=== PATIENT | female | born 1980 | race Caucasian/White ===

== ENCOUNTER 2016-12-20 10:00 | Inpatient (IN) | payer OTHER ==
[~2016-12-20] VITALS: Ht 157.5 cm; Wt 59.9 kg
--- NOTE | ~2016-12-20 | PN ---
Unit #: [id number] #: [id number] Patient: OLIVER ADAMS [id number] [facility] [address] [place] [address] [id number] MR#: [id number] NAME: OLIVER ADAMS ROOM: P210 Age: 36 Sex: F Admission Date: 12/20/2016 : 1980 Attending Physician: Viraj Alcocer M.D. Admitting Physician: Viraj Alcocer M.D. Primary Care Physician: Sugar Doctor Not In System [facility] PROGRESS NOTES DATE 12/22/2016 DISCUSSION The patient has exhibited no further episodes of violence or acting out but does report that she is continuing to experience auditory hallucinations. I will therefore start her on Geodon 20 mg b.i.d. as she states that these symptoms predated her abuse of methamphetamine though I have some doubts related to the veracity of this story. Dictated by... Viraj Alcocer M.D. CB/mya TD: 12/22/2016 17:27 JOB #: [id number] [facility] PROGRESS NOTES Page 1 of 1 X Virja Alcocer MD X PROGRESS NOTE
--- NOTE | ~2016-12-20 | PN ---
Unit #: [id number] #: [id number] Patient: OLIVER ADAMS [id number] [facility] [address] [place] [address] [id number] MR#: [id number] NAME: OLIVER ADAMS ROOM: P210 Age: 36 Sex: F Admission Date: 12/20/2016 : 1980 Attending Physician: Viraj Alcocer M.D. Admitting Physician: Viraj Alcocer M.D. 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 However, she is now exhibiting significant symptoms of opioid withdrawal related to her abuse of Suboxone. We continue her current detoxification protocol. Dictated by... Viraj Alcocer M.D. CB/fabian TD: 12/23/2016 13:46 JOB #: [id number] [facility] PROGRESS NOTES Page 1 of 1 X Viraj Alcocer MD PROGRESS NOTE
--- NOTE | ~2016-12-20 | HP ---
Unit #: [id number] #: [id number] Patient: ISABELLA ADAMS [id number] [facility] [address] [place] [address] [id number] MR#: [id number] NAME: ISABELLA ADAMS ROOM: P210 Age: 36 Sex: F Admission Date: 12/20/2016 : 1980 Attending Physician: Viraj Alcocer M.D. Admitting Physician: Viraj Alcocer M.D. Primary Care Physician: Generic Doctor Not In System HISTORY AND PHYSICAL HISTORY OF PRESENT ILLNESS Isabella Ugarte is a 36 year old admitted to [address] [place] [address] because of her polysubstance abuse which includes heroin and methamphetamine. PAST MEDICAL HISTORY 1. Long history of illicit substance abuse. 2. History of hypothyroidism. a. Radiation ablation. PAST SURGICAL HISTORY Nothing reported. ALLERGIES No known drug allergies. SOCIAL HISTORY Smokes one pack per day. Drinks alcohol on occasion. Has a history of illicit substance abuse to include heroin and methamphetamine. FAMILY HISTORY Medically not known. REVIEW OF SYSTEMS She does not answer questions appropriately. There are no reports of nausea, vomiting or diarrhea. She has had no cough or increased temperature. CURRENT MEDICATIONS 1. Detox protocol 2. Synthroid 0.112 mg q.a.m. PHYSICAL EXAMINATION GENERAL: Alert, well-nourished, in no apparent distress. VITAL SIGNS: Blood pressure 104/72, heart rate 80, respirations 16, temperature 98.6. WEIGHT: 132. HEIGHT: 5 foot 2 inches. SKIN: Warm and dry without rash or lesion. HEENT: Normocephalic. TMs not viewed. Oral and nasal passages clear. Conjunctivae clear. Pupils equal, round and reactive to light and accommodation. Extraocular movements intact. NECK: Supple without lymphadenopathy or thyromegaly. Unit #: [id number] #: [id number] Patient: ISABELLA ADAMS HEART: Regular rate and rhythm without murmur. LUNGS: Clear. ABDOMEN: Soft, nontender. : Not done. EXTREMITIES: No evidence of cyanosis, clubbing or edema. Moves all extremities without focal deficit. NEUROLOGICAL: Unable to complete extended exam. She does move all extremities without focal deficit. Hand language translator is equal and gait is normal. IMPRESSION Psychiatric admission. RECOMMENDATIONS PSYCHIATRIC: Per psychiatrist. MEDICAL: I see no contraindications to participating in facility's activities. MEDICAL PROGNOSIS Good. MEDICAL CONDITION Stable. Dictated by... Veena Ernandez P.A.-C. for Luke Marie/jus TD: 12/21/2016 23:35 JOB #: [id number] HISTORY AND PHYSICAL Page 1 of 1 X Veena Ernandez X HISTORY AND PHYSICAL
--- NOTE | ~2016-12-20 | PA ---
Unit #: [id number] #: [id number] Patient: OLIVER ADAMS [id number] [place] [address] [id number] I MR#: [id number] NAME: OLIVER ADAMS ROOM: P210 Age: 36 Sex: F Admission Date: 12/20/2016 : 1980 Date of Assessment: 12/21/2016 Attending Physician: Viraj Alcocer M.D. Admitting Physician: Viraj Alcocer M.D. Primary Care Physician: Generic Doctor Not In System PSYCHIATRIC ASSESSMENT IDENTIFYING INFORMATION The patient is a 36-year-old white female admitted in what appears to be a methamphetamine induced psychosis. INFORMANT(S) The patient, reliability fair. CHIEF COMPLAINT None given. HISTORY OF PRESENT ILLNESS The patient is a 36-year-old white female with a history of polysubstance dependence including abuse of heroin, methamphetamine and . The patient was admitted yesterday in a state of florid psychosis claiming that her thyroid medication had been "microchipped" and also reporting that she has recently been subjected to radiation and observation. When seen today the patient has calmed down. She did require a p.r.n. dose of Geodon yesterday and is now on elopement precautions. During today's interview the patient reports that she occasionally "hears voices" but denies any other psychotic symptoms. She has been in chemical dependence treatment on one previous occasion per her report. She denies intravenous use of psychoactive substances. The patient does complain of depressed mood and reports a history of "one or two" suicide attempts both by means of "stabbing herself". The patient lives with her mother at this time. She has two children age 12 and 13 neither of whom are in her custody. She does not work outside the home. PAST PSYCHIATRIC HISTORY As above. PAST MEDICAL HISTORY Significant for a history of thyroidectomy related to thyroid cancer. MEDICATIONS Synthroid. ALLERGIES None reported. FAMILY HISTORY Noncontributory. SOCIAL HISTORY The patient lives with her mother and father. She does not work outside Unit #: [id number] #: [id number] Patient: OLIVER ADAMS the home. Her substance use history is described previously. MENTAL STATUS EXAMINATION At this time reveals the patient to be a well-developed, well-nourished white female, appearing her stated age. She is in no apparent physical distress at the time of examination. She is awake, alert, and oriented in all spheres. Her mood is mildly dysphoric. His affect constricted. Speech is generally relevant and coherent. There are no gross deficits in memory or cognition noted. Intelligence is judged to be in the average range based on fund of knowledge. The patient is cooperative throughout the interview. She is currently denying suicidal or homicidal ideation and denied any psychotic symptoms. Her judgement and insight appear to be reasonably intact. ASSETS AND LIABILITIES ASSETS: Supportive family. LIABILITIES: Ongoing substance use. DIAGNOSTIC IMPRESSION Methamphetamine use disorder, opioid use disorder, methamphetamine induced psychosis, history of thyroid cancer, status post thyroidectomy. TREATMENT PLAN The patient remains hospitalized for safety and stabilization. We will at this point hold on initiation of any antidepressant medication pending the clearing of the patient's methamphetamine induced psychosis. Once this has cleared we will consider initiation of antidepressant medication and I will ask the patient's renal social worker to see her regarding post discharge treatment options. ESTIMATED LENGTH OF STAY Three to five days. Dictated by... Viraj Alcocer M.D. TIERA/jus TD: 12/21/2016 21:15 JOB #: [id number] PSYCHIATRIC ASSESSMENT Page 1 of 1 X Viraj Alcocer MD X PSYCHIATRIC ASSESSMENT
--- NOTE | ~2016-12-20 | DS ---
Unit #: [id number] #: [id number] Patient: OLIVER ADAMS [id number] [facility] [address] [place] [address] [id number] MR#: [id number] NAME: OLIVER ADAMS ROOM: P210 Age: 36 Sex: F Admission Date: 12/20/2016 : 1980 Discharge Date: 12/24/2016 Attending Physician: Viraj Alcocer M.D. Primary Care Physician: Generic Doctor Not In System DISCHARGE SUMMARY REASON FOR ADMISSION The patient is a 36-year-old white female, admitted to the [address] [place] [address] unit with a history of methamphetamine-induced psychosis and opioid abuse. HOSPITAL COURSE The patient was admitted to the [address] [place] [address] unit and placed on suicide precautions. A routine detoxification protocol was initiated. The patient initially was noted to be quite psychotic and required several doses of IM Geodon. However, these symptoms seemed to subside rather quickly, though the patient did continue to exhibit some symptoms of opioid withdrawal. These had resolved by 12/24/2016 and the patient was at that point exhibiting no signs of psychosis and discharge was ordered. FINAL DIAGNOSES Methamphetamine use disorder with intoxication; perceptual disturbance, resolved; methamphetamine use disorder; and opioid use disorder. DISPOSITION ON DISCHARGE The patient is discharged on the following medications: Geodon 20 mg b.i.d. for psychosis and Synthroid 0.112 mg daily for hypothyroidism. DIET AND ACTIVITY No dietary or physical restrictions were placed on the patient at the time of discharge. FOLLOWUP Followup will take place through the auspices of community mental health resources and the chemical dependency intensive outpatient program provided by this facility. PROGNOSIS The patient's prognosis is considered fair. Dictated by... Viraj Alcocer M.D. CB/chikis TD: 12/24/2016 16:52 JOB #: [id number] Unit #: [id number] #: [id number] Patient: OLIVER ADAMS DISCHARGE SUMMARY Page 1 of 1 X Viraj Alcocer MD X DISCHARGE SUMMARY
[2016-12-21 10:09] LABS: BASOPHIL# 0.1 X10e3 (0-0.3); EOSINOPHIL# 0.2 X10e3 (0-0.7); EOSINOPHIL% 1.1 % (0.0-7.0); HEMATOCRIT 44.9 % (35.0-45.0); HEMOGLOBIN 15.6 gm/dL (12.0-16.0); LYMPHOCYTE# 2.1 X10e3 (1.0-3.5); LYMPHOCYTE% 14.1 % (17.0-45.0); MEAN CELL VOLUME 95.5 FL (83-96); MEAN CORPUSCULAR HEMOGLOBIN 33.2 PG (28-34); MEAN CORPUSCULAR HGB CONC 34.8 g/dL (30-36); MONOCYTE# 0.6 X10e3 (0-1.0); MONOCYTE% 4.1 % (3.0-12.0); NEUTROPHIL# 11.6 X10e3 (1.5-7.1); NEUTROPHIL% 79.7 % (40-75); PLATELET COUNT 425 X10e3 (140-420); RED CELL DISTRIBUTION WIDTH 13.6 % (11.0-15.5); WHITE BLOOD COUNT 14.6 X10e3 (4.0-10.5)
[2016-12-21 10:12] LABS: DIFF IND NO
[2016-12-21 10:43] LABS: ALBUMIN SERUM 4.2 g/dL (3.5-5.0); BILIRUBIN,TOTAL 1.6 mg/dL (0.2-2.0); BUN/CREATININE RATIO 22.5; CREATININE SERUM 0.8 mg/dL (0.6-1.4); GLOM FILT RATE Estimated 95.6 mL/min (>60); POTASSIUM 3.8 mmol/L (3.5-5.1); PROTEIN TOTAL SERUM 7.1 g/dL (6.0-8.3)
[2016-12-22 09:59] LABS: URINE APPEARANCE TURBID; URINE BILIRUBIN NEG (NEG); URINE BLOOD NEG (NEG); URINE COLOR DK YELLOW; URINE GLUCOSE NEG (NEG); URINE KETONE 1+ (NEG); URINE LEUKOCYTE ESTERASE NEG (NEG); URINE NITRATE NEG (NEG); URINE PH 5.5 (5-8); URINE PROTEIN TRACE (NEG); URINE SPECIFIC GRAVITY 1.018 (1.003-1.035)
[2016-12-22 13:58] LABS: AMPHETAMINE POS (NEG); BARBITURATES NEG (NEG); BENZODIAZEPINES POS (NEG); COCAINE NEG (NEG); MARIJUANA POS (NEG); OPIATES NEG (NEG); TRICYCLIC ANTIDEPRESSANTS NEG (NEG); U METHADONE NEG (NEG)
[2016-12-23 08:24] LABS: HA AB IGM (HEPPAN) Nonreactive (()); HB CORE AB IGM (HEPPAN) Nonreactive (Nonreactive); HB S AG (HEPPAN) Nonreactive (Nonreactive); HEP C AB (HEPPAN) Nonreactive (Nonreactive); HEP C AB SIGNAL TO CUTOFF 0.02 ratio (<1.00)
== END 2016-12-24 14:25 | disposition home or self-care (01) | DRG 897 ==
LOC: P2S 15:58
PROVIDERS: Specialist
PROC: HZ2ZZZZ Detoxification Services for Substance Abuse Treatment (ICD-10-PCS; principal; 2016-12-21)
DX: F15.159 Other stimulant abuse with stimulant-induced psychotic disorder, unspecified (principal); F11.10 Opioid abuse, uncomplicated; F15.122 Other stimulant abuse with intoxication with perceptual disturbance; Z85.850 Personal history of malignant neoplasm of thyroid
CPT/HCPCS: 80053; 80074; 80307; 81003; 84703; 85025; 87806; J3486